=== PATIENT | female | born 1950 | race Caucasian/White ===

== ENCOUNTER 2017-09-07 12:32 | Outpatient (CLI) | payer BC ==
--- NOTE | 2017-09-09 11:51 | MMO ---
BILATERAL SCREENING MAMMOGRAM: DATE: 09/07/17 HISTORY: 67-year-old female for screening mammography. COMPARISON: 08/25/16, 07/30/15, 07/17/14, 05/13/13. FINDINGS: Bilateral MLO and CC views of the breasts show extremely dense breast parenchyma, which may obscure l esions on mammography. Benign-appearing calcifications are seen in the right breast. There are multip le asymmetries in both breasts, which remain grossly stable compared to the prior examination. There is no evidence of suspicious mass, suspicious cluster of microcalcifications, or area of architectura l distortion. Interpretation of this mammogram was performed with the assistance of computer-aided detection. IMPRESSION: BIRADS 2: Benign Finding(s) Annual screening mammography is recommended. POS: [facility]
== END 2017-09-07 12:33 | disposition home or self-care (01) ==
LOC: SCSMAMMO 12:32
PROVIDERS: ATTEND Physician Assistant
DX: Z12.31 Encounter for screening mammogram for malignant neoplasm of breast (principal)
CPT/HCPCS: 77067

== ENCOUNTER 2018-12-20 10:19 | Outpatient (CLI) | payer MEDICARE, OTHER ==
--- NOTE | 2018-12-20 13:31 | BD ---
DEXA BONE DENSITY STUDY: Date: 12/20/18 HISTORY: Osteoporosis screening. Postmenopausal female. COMPARISON: None. FINDINGS: Lumbar Spine: BMD (g/cm2) L1 1.100 T-Score: 1.0 Z-Score: 2.7 L2 1.269 T-Score: 2.2 Z-Score: 4.1 L3 1.237 T-Score: 1.4 Z-Score: 2.4 L4 0.900 T-Score: -1.5 Z-Score: 0.6 L1-L4 1.103 T-Score: 0.5 Z-Score: 2.5 Left Femoral Neck: 0.618 T-Score: -2.1 Z-Score: -0.4 Total Femur: 0.890 T-Score: -0.4 Z-Score: 1.0 WHO Classification: Osteopenia. 10 YEAR FRACTURE RISK: Major osteoporotic fracture: 19% Hip fracture: 3.2%. IMPRESSION: Osteopenia with elevated fracture risk as above. POS: [facility]
--- NOTE | 2018-12-20 14:09 | MMO ---
Bilateral MAMMO Bilat Screen [facility]. CLINICAL HISTORY: Patient is 68 years old and is seen for screening. The patient has the following family history of breast cancer: cousin female. The patient has no personal history of cancer. The patient has a history of right Excisional Biopsy in ? - benign - X2. VIEWS: The views performed were: bilateral craniocaudal with tomosynthesis and bilateral mediolateral oblique with tomosynthesis. FILMS COMPARED: The present examination has been compared to prior imaging studies performed at [facility] on 09/07/2017, at [facility] on 07/30/2015 and 08/25/2016, and at [facility] on 07/17/2014. This study has been interpreted with the assistance of computer-aided detection. MAMMOGRAM FINDINGS: The breasts are heterogeneously dense, which could obscure a lesion on mammography. Finding 1: There is a new equal density, oval mass seen in the sub-areolar region of the right breast. Finding 2: There is a new mass seen in the anterior region of the right breast at 9 o'clock. In the left breast, there are no suspicious masses, calcifications or areas of architectural distortion. IMPRESSION: FINDING 1: NEW MASS IN THE SUB-AREOLAR REGION OF THE RIGHT BREAST REQUIRES ADDITIONAL EVALUATION. AN ULTRASOUND EXAM IS RECOMMENDED. ADDITIONAL IMAGING. FINDING 2: NEW MASS IN THE ANTERIOR REGION OF THE RIGHT BREAST AT 9 O'CLOCK REQUIRES ADDITIONAL EVALUATION. AN ULTRASOUND EXAM IS RECOMMENDED. ADDITIONAL IMAGING. THE RESULTS OF THIS EXAM WERE SENT TO THE PATIENT. ACR BI-RADS Category 0 - Incomplete: Need additional imaging evaluation. [facility] will notify the patient of the need for additional imaging services. MAMMOGRAPHY NOTE: 1. A negative mammogram report should not delay a biopsy if a dominant of clinically suspicious mass is present. 2. Approximately 10% to 15% of breast cancers are not detected by mammography. 3. Adenosis and dense breasts may obscure an underlying neoplasm. Reported by: EAMON CORTES MD Electonically Signed: [id number]
== END 2018-12-20 10:20 | disposition home or self-care (01) ==
LOC: BICMAMMO 10:19
PROVIDERS: ATTEND Physician Assistant
DX: Z12.31 Encounter for screening mammogram for malignant neoplasm of breast (principal); Z78.0 Asymptomatic menopausal state; Z80.3 Family history of malignant neoplasm of breast; N63.41 Unspecified lump in right breast, subareolar; N63.13 Unspecified lump in the right breast, lower outer quadrant; M85.852 Other specified disorders of bone density and structure, left thigh
CPT/HCPCS: 77063; 77067; 77080

== ENCOUNTER 2019-01-03 10:45 | Outpatient (CLI) | payer MEDICARE, OTHER ==
--- NOTE | 2019-01-03 14:55 | ULT ---
RIGHT BREAST Ultrasound COMPARISON: 12/20/2018, 09/07/2017, 08/25/2017. HISTORY: Multiple well-circumcised masses in the right breast on prior mammogram. TECHNIQUE: Multiplanar, campos scale, and color Doppler images were obtained in a right breast ultrasound. FINDINGS: There are multiple an echoic cysts in the right breast measuring up to 1.8 cm in size. No suspicious masses or suspicious shadowing are seen in the right breast. IMPRESSION: BIRADS category 2 - benign findings. Annual screening mammography is recommended. POS: [facility]
== END 2019-01-03 10:46 | disposition home or self-care (01) ==
LOC: BICULT 10:45
PROVIDERS: ATTEND Physician Assistant
DX: N63.10 Unspecified lump in the right breast, unspecified quadrant (principal)

== ENCOUNTER 2020-03-26 11:28 | Outpatient (CLI) | payer MEDICARE ==
--- NOTE | 2020-03-26 12:56 | MMO ---
Bilateral MAMMO Bilat Screen [facility]. CLINICAL HISTORY: Patient is 70 years old and is seen for screening. The patient has the following family history of breast cancer: cousin female. The patient has no personal history of cancer. The patient has a history of right Excisional Biopsy in ? - benign - X2. VIEWS: The views performed were: bilateral craniocaudal with tomosynthesis and bilateral mediolateral oblique with tomosynthesis. FILMS COMPARED: The present examination has been compared to prior imaging studies performed at [facility] on 09/07/2017, and at [facility] on 08/25/2016, 12/20/2018 and 01/03/2019. This study has been interpreted with the assistance of computer-aided detection. MAMMOGRAM FINDINGS: The breasts are heterogeneously dense, which could obscure a lesion on mammography. There is a new asymmetry seen in the upper region of the left breast. In the right breast, there are no suspicious masses, calcifications or areas of architectural distortion. IMPRESSION: NEW ASYMMETRY IN THE LEFT BREAST REQUIRES ADDITIONAL EVALUATION. AN ULTRASOUND EXAM IS RECOMMENDED IF NEEDED. ADDITIONAL IMAGING. THE RESULTS OF THIS EXAM WERE SENT TO THE PATIENT. ACR BI-RADS Category 0 - Incomplete: Need additional imaging evaluation. [facility] will notify the patient of the need for additional imaging services. MAMMOGRAPHY NOTE: 1. A negative mammogram report should not delay a biopsy if a dominant of clinically suspicious mass is present. 2. Approximately 10% to 15% of breast cancers are not detected by mammography. 3. Adenosis and dense breasts may obscure an underlying neoplasm. Reported by: RAMILA VEGA MD Electonically Signed: [id number]
== END 2020-03-26 11:29 | disposition home or self-care (01) ==
LOC: BICMAMMO 11:28
PROVIDERS: ATTEND Physician Assistant
DX: Z12.31 Encounter for screening mammogram for malignant neoplasm of breast (principal); Z80.9 Family history of malignant neoplasm, unspecified; N64.89 Other specified disorders of breast
CPT/HCPCS: 77063; 77067

== ENCOUNTER 2020-04-06 09:20 | Outpatient (CLI) | payer MEDICARE ==
--- NOTE | 2020-04-06 09:56 | MMO ---
Left Breast MAMMO Unilat Diag [facility]. CLINICAL HISTORY: Patient is 70 years old and is seen for diagnostic exam. The patient has the following family history of breast cancer: cousin female. The patient has no personal history of cancer. The patient has a history of right Excisional Biopsy in ? - benign - X2. VIEWS: The views performed were: left craniocaudal with tomosynthesis; left mediolateral oblique with tomosynthesis; and left mediolateral with tomosynthesis. FILMS COMPARED: The present examination has been compared to prior imaging studies performed at [facility] on 12/20/2018, 01/03/2019, 03/26/2020 and 04/06/2020. This study has been interpreted with the assistance of computer-aided detection. MAMMOGRAM FINDINGS: The breast is heterogeneously dense, which could obscure a lesion on mammography. Tomosynthesis compression images show the abnormality to represent superimpostion of normal breast parenchyma. There are no suspicious masses, suspicious calcifications, or new areas of architectural distortion. IMPRESSION: THERE IS NO MAMMOGRAPHIC EVIDENCE OF MALIGNANCY. A ROUTINE FOLLOW-UP MAMMOGRAM IN 1 YEAR IS RECOMMENDED. THE RESULTS OF THIS EXAM WERE SENT TO THE PATIENT. ACR BI-RADS Category 2 - Benign finding MAMMOGRAPHY NOTE: 1. A negative mammogram report should not delay a biopsy if a dominant of clinically suspicious mass is present. 2. Approximately 10% to 15% of breast cancers are not detected by mammography. 3. Adenosis and dense breasts may obscure an underlying neoplasm. Reported by: STEWART DANIEL MD Electonically Signed: [id number]
== END 2020-04-06 09:21 | disposition home or self-care (01) ==
LOC: BICULT 09:20
PROVIDERS: ATTEND Physician Assistant
DX: Z12.31 Encounter for screening mammogram for malignant neoplasm of breast (principal); Z80.3 Family history of malignant neoplasm of breast; Z91.89 Other specified personal risk factors, not elsewhere classified
CPT/HCPCS: 77065; G0279

== ENCOUNTER 2021-04-29 08:48 | Outpatient (CLI) | payer MEDICARE | END 2021-04-29 08:49 | disposition home or self-care (01) | LOC: BICMAMMO 08:48 | PROVIDERS: ATTEND Physician Assistant | DX: Z12.31 Encounter for screening mammogram for malignant neoplasm of breast (principal); M85.80 Other specified disorders of bone density and structure, unspecified site; Z80.3 Family history of malignant neoplasm of breast; E55.9 Vitamin D deficiency, unspecified; M85.852 Other specified disorders of bone density and structure, left thigh; M85.851 Other specified disorders of bone density and structure, right thigh | CPT/HCPCS: 77063; 77067; 77080 ==

== ENCOUNTER 2022-07-07 11:40 | Outpatient (CLI) | payer MEDICARE | END 2022-07-07 11:41 | disposition home or self-care (01) | LOC: BICMAMMO 11:40 | PROVIDERS: ATTEND Physician Assistant | DX: Z12.31 Encounter for screening mammogram for malignant neoplasm of breast (principal) | CPT/HCPCS: 77063; 77067 ==